=== PATIENT | male | born 1945 | race Caucasian/White ===

== ENCOUNTER → 2017-08-04 08:45 | Outpatient (CLI) | payer MEDICARE, SELFPAY ==
--- NOTE | 2017-08-04 09:01 | CT_ITS ---
CT abdomen pelvis w con CLINICAL INDICATION: Ventral hernia evaluation, pain ITS.REASON: VENTRAL HERNIA, ORDERING PHYSICIAN: Shelby Mayen PATIENT AGE: 72 years COMPARISON: 04/03/2009 TECHNIQUE: Axial images obtained with sagittal and coronal reformats. All CT scans at the facility use one or more dose reduction, viz: automated exposure control; ma/kV adjustment per patient size (including targeted exams where dose is matched to indication; i.e. head); or iterative reconstruction technique. PROCEDURE: Oral Contrast: 75 mL's of Isovue-370 IV Contrast: Redicat. FINDINGS: Lung bases are clear. The liver, spleen, adrenal glands, pancreas, and kidneys have an unremarkable appearance. No hydronephrosis or obstructing ureteral calculus. There is a retroaortic left renal vein as a normal variant Unremarkable appendix. There are scant colonic diverticula without evidence of diverticulitis. No abdominal wall hernia is evident. No intestinal obstruction or free air. There is mild thickening versus nondistention of the proximal jejunum There is grade 2 spondylitic spondylolisthesis of L5 on S1 with severe degenerative disc disease at that level similar to the previous exam. There is sclerosis of the SI joints. A small sclerotic focus involves the ileum on the right probably due to small bone island change. Seed implants are present within the prostate. No pelvic mass focal inflammatory change or abnormal fluid collection evident. IMPRESSION: 1. No definite acute finding. 2. No abdominal wall hernia evident. 3. Mild thickening versus nondistention of the proximal jejunum
== END ==
PROVIDERS: Family Provider Family Medicine; PCP Nurse Practitioner Family; Visit Provider Nurse Practitioner Family
DX: K43.9 Ventral hernia without obstruction or gangrene (principal)
CPT/HCPCS: 74177; Q9967

== ENCOUNTER → 2020-05-09 10:59 | Outpatient (CLI) | payer MEDICARE, SELFPAY ==
--- NOTE | 2020-05-09 11:11 | XR_ITS ---
PROCEDURE: XR SHOULDER LT MIN 2V CLINICAL INDICATION: LT SHOULDER PAIN COMPARISON: No exams were available for comparison FINDINGS: No fracture or dislocation. No lytic or blastic change. There is normal mineralization. Are mild osteoarthritic changes of the acromioclavicular joint and glenohumeral joint. There is minimal irregularity of the greater tuberosity surface which has be seen with rotator cuff disease. There is mild subacromial stenosis. Other findings:None. 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 Dictated by: Fidel Rascon MD 05/09/2020 19:08 Fidel Rascon MD in [facility] 05/09/2020 19:08
== END ==
PROVIDERS: PCP Nurse Practitioner; Visit Provider Nurse Practitioner
DX: M25.512 Pain in left shoulder (principal)
CPT/HCPCS: 73030